=== PATIENT | male | born 1990 | race Caucasian/White ===

== ENCOUNTER → 2018-09-27 | Outpatient (CLI) | payer OTHER ==
--- NOTE | 2018-09-27 12:27 | 2DMMODE ---
[facility] [place] [address] 2 D/M-MODE ECHOCARDIOGRAM Name: JOYCE VAZQUEZ Room #: REG CL [facility]#: [id number] ������������� Admission: 09/27/18 ������������� Attend Phys: Reece Jarvis MD Discharge: ��� ������������� ��� Date of : 89 Date of Service: 09/27/18 1227 �� Report #: [id number] �������� ��������������������������������������������[id number] THIS REPORT FOR: //name// APPROVED REPORT Study performed: 09/27/2018 10:27:59 EXAM: Comprehensive 2D, Doppler, and color-flow Echocardiogram Patient Location: Out-Patient Status: routine BSA: 2.10 HR: 62 bpm BP: 130/88 mmHg Rhythm: NSR Other Information Study Quality: Good Indications Dyspnea Palpitations Chest Pain 2D Dimensions RVDd: 37.29 mm IVSd: 8.99 (7-11mm) LVOT Diam: 21.60 (18-24mm) LVDd: 48.78 mm PWd: 9.69 (7-11mm) Ascending Ao: 27.07 (22-36mm) LVDs: 34.92 (25-40mm) Aortic Root: 32.63 mm Volumes Left Atrial Volume (Systole) Single Plane 4CH: 32.68 mL Single Plane 2CH: 49.29 mL LA ESV Index: 20.00 mL/m2 Aortic Valve AoV Peak Tyler.: 1.26 m/s AO Peak Gr.: 6.33 mmHg LVOT Max P.45 mmHg LVOT Max V: 1.06 m/s TIANNA Vmax: 3.07 cm2 Mitral Valve E/A Ratio: 1.7 [facility] [address] [place] [address] 2 D/M-MODE ECHOCARDIOGRAM Name: JOYCE VAZQUEZ Room #: REG CL [facility]#: [id number] ������������� Admission: 09/27/18 ������������� Attend Phys: Reece Jarvis MD Discharge: ��� ������������� ��� Date of : 89 Date of Service: 09/27/18 1227 �� Report #: [id number] �������� ��������������������������������������������[id number] MV Decel. Time: 154.64 ms MV E Max Tyler.: 0.78 m/s MV A Tyler.: 0.45 m/s MV PHT: 44.85 ms IVRT: 69.20 ms Pulmonary Valve PV Peak Tyler.: 0.85 m/s PV Peak Gr.: 2.91 mmHg Pulmonary Vein P Vein S: 0.41 m/s P Vein A: 0.28 m/s P Vein D: 0.68 m/s P Vein A Dur.: 96.9 msec P Vein S/D Ratio: 0.60 Tricuspid Valve TR Peak Tyler.: 1.87 m/s RAP Estimate: 5.00 mmHg TR Peak Gr.: 14.00 mmHg PA Pressure: 19.00 mmHg Left Ventricle The left ventricle is normal size. There is normal LV segmental wall motion. There is normal left ventricular wall thickness. Left ventricular systolic function is normal. LVEF 55%. The left ventricular diastolic function is normal. Right Ventricle The right ventricle is normal size. The right ventricular systolic function is normal. Atria The left atrium size is normal. The right atrium size is normal. Aortic Valve The aortic valve is normal in structure. No aortic regurgitation is present. There is no aortic valvular stenosis. Mitral Valve The mitral valve is normal in structure. Trace mitral regurgitation. Tricuspid Valve The tricuspid valve is normal in structure. Trace tricuspid regurgitation. Estimated PAP is 20mmHg. Pulmonic Valve [facility] [place] [address] 2 D/M-MODE ECHOCARDIOGRAM Name: JOYCE VAZQUEZ Room #: REG CL [facility]#: [id number] ������������� Admission: 09/27/18 ������������� Attend Phys: Reece Jarvis MD Discharge: ��� ������������� ��� Date of : 89 Date of Service: 09/27/18 1227 �� Report #: [id number] �������� ��������������������������������������������[id number] The pulmonary valve is normal in structure. Trace pulmonic regurgitation. Great Vessels The aortic root is normal in size. The ascending aorta is normal in size. IVC is normal in size and collapses >50% with inspiration. Pericardium There is no pericardial effusion. <Conclusion> 1. Normal echocardiogram with Doppler. Ejection fraction 55% 2. Pulmonary artery pressure of 20 mmHg 3. No pericardial effusion ��������������������������������������������� <ELECTRONICALLY SIGNED> ���������������������������������������� By: Yousuf Miranda MD, [facility] ��������������������������������������������� 09/27/18 1227 [id number] Yousuf Miranda MD, [facility] /INF
== END ==
LOC: CV 07:40
DX: I25.9 Chronic ischemic heart disease, unspecified (principal); R07.9 Chest pain, unspecified

== ENCOUNTER → 2018-12-20 | Outpatient (CLI) | payer OTHER | LOC: PUL 12:55 | DX: R07.1 Chest pain on breathing (principal) ==